=== PATIENT | male | born 1935 | race Caucasian/White ===

== ENCOUNTER → 2017-06-26 | Outpatient (CLI) | payer MEDICARE, BC | END | disposition home or self-care (01) | LOC: PCVCCLINIC 13:00 | PROVIDERS: ATTEND Internal Medicine Cardiovascular Disease | DX: I12.9 Hypertensive chronic kidney disease with stage 1 through stage 4 chronic kidney disease, or unspecified chronic kidney disease (principal); N18.4 Chronic kidney disease, stage 4 (severe); I45.10 Unspecified right bundle-branch block; C83.30 Diffuse large B-cell lymphoma, unspecified site; Z90.49 Acquired absence of other specified parts of digestive tract; Z87.891 Personal history of nicotine dependence; Z79.899 Other long term (current) drug therapy | CPT/HCPCS: 80061; 93005; G0463 ==

== ENCOUNTER → 2017-06-26 | Outpatient (CLI) | payer MEDICARE, BC ==
--- NOTE | 2017-06-26 14:46 | PCVCIMAG ---
APPROVED REPORT Study performed: 06/26/2017 12:43:38 EXAM: Comprehensive 2D, Doppler, and color-flow Echocardiogram Patient Location: Echo lab Status: routine BSA: 2.30 HR: 50 bpmBP: 140/90 mmHg Rhythm: Bradycardia, RBBB Other Information Study Quality: Adequate Risk Factors: Cardiac Risk Factors: HTN Indications RBBB 2D Dimensions LVEF(%): 42.59 (>50%) IVSd: 16.51 (7-11mm) LVDd: 50.38 mm PWd: 15.60 (7-11mm)Ascending Ao: 43.67 (22-36mm) LVDs: 39.78 (25-40mm) Left Atrium: 46.14 (27-40mm) Aortic Root: 39.09 mm LV Single Plane 4CH: 52.78 % LV Single Plane 2CH: 51.73 %Jacinto's LVEF: 52.26 % Biplane EF: 53.1 % Volumes Left Atrial Volume (Systole) Single Plane 4CH: 83.59 mLSingle Plane 2CH: 86.74 mL LA ESV Index: 38.00 mL/m2 Aortic Valve AoV Peak Sadiq.: 1.82 m/s AO Peak Gr.: 13.33 mmHgLVOT Max P.63 mmHg LVOT Max V: 1.18 m/s Mitral Valve E/A Ratio: 1.1 MV Decel. Time: 189.76 ms MV E Max Sadiq.: 0.45 m/s MV A Sadiq.: 0.42 m/s IVRT: 162.63 ms Pulmonary Valve PV Peak Sadiq.: 0.97 m/sPV Peak Gr.: 3.78 mmHg Pulmonary Vein P Vein S: 0.23 m/sP Vein A: 0.31 m/s P Vein D: 0.40 m/sP Vein A Dur.: 131.5 msec P Vein S/D Ratio: 0.57 Tricuspid Valve TR Peak Sadiq.: 2.41 m/s TR Peak Gr.: 23.28 mmHg Left Ventricle The left ventricle is normal size. There is normal LV segmental wall motion. Moderate concentric left ventricular hypertrophy. Left ventricular systolic function is normal. The left ventricular ejection fraction is within the normal range. LVEF is 50-55%. Grade I - abnormal relaxation pattern. Right Ventricle The right ventricle is normal size. The right ventricular systolic function is normal. Atria Left atrium is mildly dilated. Right atrium is mildly dilated. Aortic Valve The Aortic valve is sclerotic no stenosis. No aortic regurgitation is present. There is no aortic valvular stenosis. Mitral Valve The mitral valve is normal in structure. Mild mitral regurgitation. No evidence of mitral valve stenosis. Tricuspid Valve The tricuspid valve is normal in structure. Trace tricuspid regurgitation with PAP of 30 mmHg. Pulmonic Valve The pulmonary valve is normal in structure. There is no pulmonic valvular regurgitation. Great Vessels The aortic root is normal in size. The ascending aorta is mild-moderately dilated to 4.4 cm. IVC is normal in size and collapses with >50% inspiration Pericardium There is no pericardial effusion. <Conclusion> Moderate concentric left ventricular hypertrophy. Left ventricular systolic function is normal. The left ventricular ejection fraction is within the normal range. LVEF is 50-55%. Grade I - abnormal relaxation pattern. The right ventricle is normal size. Left atrium is mildly dilated. Right atrium is mildly dilated. The Aortic valve is sclerotic no stenosis. Mild mitral regurgitation. Trace tricuspid regurgitation with PAP of 30 mmHg. There is no pericardial effusion.
--- NOTE | 2017-06-27 21:02 | PCVCIMAG ---
EXAM: BILATERAL RENAL ULTRASOUND AND BILATERAL RENAL DUPLEX INDICATION: Hypertension FINDINGS: Right kidney: Length measures 13.1 cm. No hydronephrosis or extensive renal scarring. Increased echogenicity throughout the kidney compatible with diffuse medical renal disease. Multiple benign cysts seen in the kidney. Right renal duplex: Adequate technical quality. No sonographic evidence of renal artery stenosis. The aortic to renal artery ratio is 0.6. The renal vein is patent. Left kidney: Length measures 14.0 cm. No hydronephrosis or extensive renal scarring. Increased echogenicity throughout the kidney compatible with diffuse medical renal disease. Multiple benign cysts seen in the kidney. Left renal duplex: Adequate technical quality. No sonographic evidence of renal artery stenosis. The aortic to renal artery ratio is 0.5. The renal vein is patent. Bladder: No obvious abnormalities. IMPRESSION: No significant renal artery stenosis. No hydronephrosis bilaterally. Diffuse increased renal echogenicity as described. Presumed abdominal aortic dissection as noted previously on 2015 CT. LOC:OFFICE
== END | disposition home or self-care (01) ==
LOC: PCVCIMAG 12:41
PROVIDERS: ATTEND Internal Medicine Cardiovascular Disease
DX: I08.1 Rheumatic disorders of both mitral and tricuspid valves (principal); I45.10 Unspecified right bundle-branch block; C83.30 Diffuse large B-cell lymphoma, unspecified site; I12.9 Hypertensive chronic kidney disease with stage 1 through stage 4 chronic kidney disease, or unspecified chronic kidney disease; N18.4 Chronic kidney disease, stage 4 (severe); N28.1 Cyst of kidney, acquired; M19.90 Unspecified osteoarthritis, unspecified site; Z90.49 Acquired absence of other specified parts of digestive tract; Z79.899 Other long term (current) drug therapy; Z87.891 Personal history of nicotine dependence
CPT/HCPCS: 76770; 80061; 93005; 93306; 93975; G0463

== ENCOUNTER → 2017-12-29 | Outpatient (CLI) | payer MEDICARE, BC | END | disposition home or self-care (01) | LOC: PCVCCLINIC 14:36 | DX: I48.0 Paroxysmal atrial fibrillation (principal); I10 Essential (primary) hypertension; R09.89 Other specified symptoms and signs involving the circulatory and respiratory systems; R94.31 Abnormal electrocardiogram [ECG] [EKG]; I45.10 Unspecified right bundle-branch block; Z87.891 Personal history of nicotine dependence; Z79.899 Other long term (current) drug therapy | CPT/HCPCS: 80061; 93005; G0463 ==

== ENCOUNTER → 2018-03-11 | Outpatient (CLI) | payer MEDICARE, BC | END | disposition home or self-care (01) | LOC: PCVCIMAG 13:16 | DX: I08.1 Rheumatic disorders of both mitral and tricuspid valves (principal); I48.0 Paroxysmal atrial fibrillation; I10 Essential (primary) hypertension; C83.30 Diffuse large B-cell lymphoma, unspecified site; I71.01 Dissection of thoracic aorta; R09.89 Other specified symptoms and signs involving the circulatory and respiratory systems; Z87.19 Personal history of other diseases of the digestive system; Z87.891 Personal history of nicotine dependence; Z79.899 Other long term (current) drug therapy | CPT/HCPCS: 93005; 93306; 93880; G0463 ==

== ENCOUNTER → 2018-04-14 | Outpatient (CLI) | payer MEDICARE, BC | END | disposition home or self-care (01) | LOC: PCVCCLINIC 11:52 | DX: I48.0 Paroxysmal atrial fibrillation (principal); I44.1 Atrioventricular block, second degree; I10 Essential (primary) hypertension; I71.01 Dissection of thoracic aorta; C83.30 Diffuse large B-cell lymphoma, unspecified site; M48.061 Spinal stenosis, lumbar region without neurogenic claudication; R94.31 Abnormal electrocardiogram [ECG] [EKG]; Z87.891 Personal history of nicotine dependence; Z79.899 Other long term (current) drug therapy | CPT/HCPCS: 36415; 93005; G0463 ==

== ENCOUNTER → 2018-08-02 | Outpatient (CLI) | payer MEDICARE, BC | END | disposition home or self-care (01) | LOC: PCVCCLINIC 15:20 | PROVIDERS: ATTEND Internal Medicine Cardiovascular Disease | DX: I44.2 Atrioventricular block, complete (principal); I48.0 Paroxysmal atrial fibrillation; I10 Essential (primary) hypertension; I71.2 Thoracic aortic aneurysm, without rupture; Z95.0 Presence of cardiac pacemaker; Z87.19 Personal history of other diseases of the digestive system; Z87.891 Personal history of nicotine dependence | CPT/HCPCS: 80061; 93005; 93280; G0463 ==

== ENCOUNTER → 2019-01-19 | Outpatient (CLI) | payer MEDICARE, BC | END | disposition home or self-care (01) | LOC: PCVCCLINIC 14:54 | PROVIDERS: ATTEND Internal Medicine Cardiovascular Disease | DX: I48.0 Paroxysmal atrial fibrillation (principal); I44.2 Atrioventricular block, complete; I71.2 Thoracic aortic aneurysm, without rupture; I70.1 Atherosclerosis of renal artery; I12.9 Hypertensive chronic kidney disease with stage 1 through stage 4 chronic kidney disease, or unspecified chronic kidney disease; N18.9 Chronic kidney disease, unspecified; Z87.19 Personal history of other diseases of the digestive system; Z95.0 Presence of cardiac pacemaker; Z87.891 Personal history of nicotine dependence | CPT/HCPCS: 36415; 80061; 93280; G0463 ==

== ENCOUNTER → 2019-08-31 | Outpatient (CLI) | payer MEDICARE, BC ==
--- NOTE | 2019-08-31 12:26 | PCVCIMAG ---
APPROVED REPORT Study performed: 08/31/2019 11:31:44 EXAM: Comprehensive 2D, Doppler, and color-flow Echocardiogram Patient Location: Echo lab Status: routine BSA: 2.32 HR: 61 bpmBP: 140/84 mmHg Rhythm: NSR Other Information Study Quality: Adequate Indications Pacemaker parox a fib, ascending aorta aneurysm 2D Dimensions IVSd: 16.51 (7-11mm)LVOT Diam: 24.86 (18-24mm) LVDd: 45.58 mm PWd: 16.27 (7-11mm)Ascending Ao: 45.65 (22-36mm) LVDs: 32.13 (25-40mm) Left Atrium: 50.53 (27-40mm) Aortic Root: 41.56 mm LV Single Plane 4CH: 55.22 % LV Single Plane 2CH: 62.36 % Biplane EF: 59.7 % Volumes Left Atrial Volume (Systole) Single Plane 4CH: 116.06 mLSingle Plane 2CH: 147.00 mL LA ESV Index: 58.00 mL/m2 Aortic Valve AoV Peak Sadiq.: 2.64 m/s AO Peak Gr.: 27.79 mmHgLVOT Max P.33 mmHg AO Mean Gr.: 15.75 mmHgLVOT Mean P.02 mmHg AO V2 Mean: 1.86 m/sLVOT Max V: 1.31 m/s AO V2 VTI: 56.04 cmLVOT Mean V: 0.95 m/s SIERRA (VTI): 2.09 [id number] V1 VTI: 24.12 cm SIERRA Vmax: 2.41 cm2 SV (LVOT): 117.04 mL Mitral Valve IVRT: 110.73 ms Pulmonary Valve PV Peak Sadiq.: 0.93 m/sPV Peak Gr.: 3.45 mmHg Tricuspid Valve TR Peak Sadiq.: 3.55 m/s TR Peak Gr.: 50.28 mmHg Left Ventricle The left ventricle is normal size. There is normal LV segmental wall motion. Moderate concentric left ventricular hypertrophy. Left ventricular systolic function is normal. The left ventricular ejection fraction is within the normal range. LVEF is 60%. This study is not technically sufficient to allow evaluation of the LV diastolic function. Right Ventricle The right ventricle is normal size. The right ventricular systolic function is normal. Atria Left atrium is severely dilated. Right atrium is severely dilated. Aortic Valve Moderate aortic valve sclerosis. No aortic regurgitation is present. There is mild valvular aortic stenosis. Calculated aortic valve area is 2.4 cm2 with maximum pressure gradient of 28 mmHg and mean pressure gradient of 16 mmHg. Mitral Valve The mitral valve is normal in structure. Mild mitral regurgitation. No evidence of mitral valve stenosis. Tricuspid Valve The tricuspid valve is normal in structure. Moderate tricuspid regurgitation with PAP of 60 mmHg. Pulmonic Valve The pulmonary valve is normal in structure. There is no pulmonic valvular regurgitation. 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 Ascending aorta is dilated to 4.6 cm. IVC is normal in size and collapses >50% with inspiration. Pericardium Mild circumferential pericardial effusion. No tamponade physiology. There is no pleural effusion. <Conclusion> The left ventricle is normal size. Moderate concentric left ventricular hypertrophy. LVEF is 60%. This study is not technically sufficient to allow evaluation of the LV diastolic function. The right ventricle is normal size. Left atrium is severely dilated. Right atrium is severely dilated. Moderate aortic valve sclerosis. There is mild valvular aortic stenosis. Calculated aortic valve area is 2.4 cm2 with maximum pressure gradient of 28 mmHg and mean pressure gradient of 16 mmHg. Mild mitral regurgitation. Moderate tricuspid regurgitation with PAP of 60 mmHg. 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 Mild circumferential pericardial effusion. No tamponade physiology.
== END | disposition home or self-care (01) ==
LOC: PCVCIMAG 11:38
PROVIDERS: ATTEND Internal Medicine Cardiovascular Disease
DX: I08.3 Combined rheumatic disorders of mitral, aortic and tricuspid valves (principal); I71.03 Dissection of thoracoabdominal aorta; I48.0 Paroxysmal atrial fibrillation; I13.10 Hypertensive heart and chronic kidney disease without heart failure, with stage 1 through stage 4 chronic kidney disease, or unspecified chronic kidney disease; N18.3 Chronic kidney disease, stage 3 (moderate); I70.1 Atherosclerosis of renal artery; I44.2 Atrioventricular block, complete; I48.21 Permanent atrial fibrillation; E21.3 Hyperparathyroidism, unspecified; I45.10 Unspecified right bundle-branch block; M48.061 Spinal stenosis, lumbar region without neurogenic claudication; Z95.0 Presence of cardiac pacemaker; Z87.891 Personal history of nicotine dependence
CPT/HCPCS: 93306